=== PATIENT | male | born 1965 | race Caucasian/White ===

== ENCOUNTER 2021-06-07 08:25 | Emergency (ER) | payer SELFPAY ==
[~2021-06-07] VITALS: Ht 165.1 cm; Wt 81.4 kg
[2021-06-07 08:34] VITALS: BP 146/83
--- NOTE | 2021-06-07 08:38 | NUR ---
PATIENT AMBULATED TO BED 11.
--- NOTE | 2021-06-07 08:50 | NUR ---
DR. CHOW AT THE BEDSIDE
--- NOTE | 2021-06-07 08:59 | NUR ---
PT BIB SELF C/O OF LLQ PAIN X 3 DAYS. PT REPORTS PAIN IS 8/10, WITH AGREVATING FACTORS OF AMBULATION AND SITTING. ABDOMEN IS SOFT, ROUND, TENDER LLQ TO PALPATION. PT REPORTS HAVING A NORMAL BOWEL MOVEMENT THIS MORNING. PT HAS ACTIVE BOWEL SOUNDS IN ALL FOUR QUADRANTS. PT DENIES N/V/D/ AT THIS TIME. A&O X 4, STEADY GAIT, EVEN AND UNLABORED RESPIRATIONS. PT DOES NOT APPEAR TO BE IN DISTRESS AT THIS TIME.
[2021-06-07] MEDS ORDERED: KETOROLAC 15 MG/ML VIAL IM ONE (09:00)
--- NOTE | 2021-06-07 09:10 | NUR ---
PT TAKEN TO CT VIA [facility]
[2021-06-07 09:47] LABS: BASOPHILS % (AUTO) 0.7 % (0.0-2.0); EOSINOPHILS # (AUTO) 0.3 K/uL (0-0.4); EOSINOPHILS % (AUTO) 4.1 % (0.0-4.0); HEMATOCRIT 47.4 % (36-52); HEMOGLOBIN 16.2 g/dL (12.0-18.0); LYMPHOCYTES # (AUTO) 2.4 K/uL (2.0-11.5); LYMPHOCYTES % (AUTO) 39.1 % (20.5-51.1); MEAN CORPUSCULAR HEMOGLOBIN 32 pg (27-31); MEAN CORPUSCULAR HGB CONC 34 g/dL (33-37); MEAN CORPUSCULAR VOLUME 93.7 fL (80-94); MONOCYTES # (AUTO) 0.4 K/uL (0.8-1.0); NEUTROPHILS % (AUTO) 49.1 % (42.2-75.2); PLATELET COUNT (AUTO) 221 K/uL (140-450); RED BLOOD CELL COUNT(AUTO) 5.06 MIL/uL (4.20-6.10); RED CELL DISTRIBUTION WIDTH 13.4 % (11.6-13.7); WHITE BLOOD COUNT (AUTO) 6.2 K/uL (4.8-10.8)
[2021-06-07 09:58] LABS: ALBUMIN 3.7 g/dL (3.4-5.0); ANION GAP 10.8 (8-16); CARBON DIOXIDE 25.2 mmol/L (21-32); CREATININE 0.8 mg/dL (0.6-1.3); TOTAL BILIRUBIN 0.5 mg/dL (0.0-1.0)
[2021-06-07] MEDS ORDERED: ACET-10509 PO (10:52)
[2021-06-07] MEDS ORDERED: BEN10 PO (10:52)
[2021-06-07 11:01] VITALS: BP 132/81
--- NOTE | 2021-06-07 11:02 | NUR ---
Patient discharged with v/s stable. Written and verbal after care instructions given and explained. Patient alert, oriented and verbalized understanding of instructions. Ambulatory with steady gait. All questions addressed prior to discharge. ID band removed. Patient advised to follow up with PMD. Rx of BENTYL, ACETOMINOPHEN given. Patient educated on indication of medication including possible reaction and side effects. Opportunity to ask questions provided and answered.
== END 2021-06-07 11:01 | disposition home or self-care (01) ==
LOC: MED 08:25
DX: R10.32 Left lower quadrant pain (principal); R03.0 Elevated blood-pressure reading, without diagnosis of hypertension; Z79.899 Other long term (current) drug therapy
CPT/HCPCS: 36415; 74176; 80053; 81002; 83690; 85025; 96372; 99284; J1885